=== PATIENT | male | born 1970 | race Hispanic/Latino ===

== ENCOUNTER 2017-03-15 18:18 | Observation (INO) | payer BC, SELFPAY ==
[2017-03-15 18:59] LABS: #Basophils 0.1 thou/uL (0.0-0.2); #Eosinphils 0.1 thou/uL (0.0-0.7); #Lymphocytes 3.1 thou/uL (1.20-3.40); #Monocytes 0.7 thou/uL (0.11-0.59); #Neutrophils 3.2 thou/uL (1.40-6.50); %Basophils 1.2 % (0.0-1.0); %Eosinophils 1.8 % (0.0-10.0); %Lymphocytes 43.3 % (21.0-51.0); %Monocytes 9.7 % (0.0-10.0); Hematocrit 47.6 % (42.0-52.0); Mean Platelet Volume 10.2 fL (7.4-10.4); Red Blood Cell (RBC) Count 5.57 mill/uL (4.70-6.10); White Blood Cell (WBC) Count 7.2 thou/uL (4.8-10.8)
[2017-03-15 19:19] LABS: ALT (SGPT) 68 U/L (8-55); AST (SGOT) 35 U/L (5-34); Alkaline Phosphatase 135 U/L (40-150); Anion Gap 12 mmol/L (10-20); BUN (Urea Nitrogen) 12 mg/dL (8.9-20.6); Bilirubin, Total 0.6 mg/dL (0.2-1.2); CK (CPK) 228 U/L (30-200); Calc. Creatinine Clearance 0 mL/min (70-130); Calcium 9.5 mg/dL (7.8-10.44); Carbon Dioxide 25 mmol/L (22-29); Chloride 106 mmol/L (98-107); Estimated GFR-MDRD Greater than 90; Globulin 3.3 g/dL (2.4-3.5); Lipase 30 U/L (8-78); Protein, Total 7.5 g/dL (6.0-8.3)
[2017-03-15 19:23] LABS: Troponin I Less than 0.010 ng/mL (< 0.028)
[2017-03-15] MEDS ORDERED: Nitroglycerin 2% Ointment 1 INCH/1 GM Packet ONE (19:40)
[2017-03-15] MEDS ORDERED: Nitroglycerin 0.4 MG TAB (25 Tab Bottle) PO PRN (19:57)
[2017-03-15] MEDS ORDERED: Sodium Chloride 0.9% 1,000 ML IV SCH (20:00)
--- NOTE | 2017-03-15 20:06 | RAD ---
FRONTAL VIEW CHEST: Comparison: None. History: Chest pain. FINDINGS: There is no evidence of consolidation, effusion, or pneumothorax. Cardiac silhouette is accentuated with portable technique. IMPRESSION: No focal consolidation. POS: [facility]
--- NOTE | 2017-03-15 20:35 | HP ---
PRIMARY CARE PHYSICIAN: Elaine Alonso M.D. CHIEF COMPLAINT: Chest pain. HISTORY OF PRESENT ILLNESS: Mr. Ruvalcaba is a pleasant 46-year-old gentleman, who was seen at [facility] on 03/15/2017. He mainly speaks Guamanian. His son was in the room and was the offset press operator for this clinical encounter. Mr. Ruvalcaba was reportedly doing well until today morning. Today morning, he developed retros ternal chest discomfort, sharp, cannot 10/10 at its worst, no known aggravating or relieving factors , radiating to the jaw, not accompanied by shortness of breath, nausea, or lightheadedness. It last ed several hours and is now resolved. REVIEW OF SYSTEMS: The following complete review of systems was negative, unless otherwise mentione d in the HPI or below: Constitutional: Weight loss or gain, sense of well-being, ability to conduct usual activities, exer cise tolerance. Skin/Breast: Rash, itching, changes in hair growth or loss, nail changes, breast lumps, tenderness, swelling, nipple discharge. Eyes: Vision, double vision, tearing, blind spots, pain. ENT/Mouth: Headaches (location, time of onset, duration, precipitating factors), vertigo, lighthead edness, injury. Vision, double vision, tearing, blind spots, pain, nose bleeding, colds, obstruction , discharge, dental difficulties, gingival bleeding, dentures, neck stiffness, pain, tenderness, mas ses in thyroid or other areas. Cardiovascular: Precordial pain, substernal distress, palpitations, syncope, dyspnea on exertion, o rthopnea, nocturnal paroxysmal dyspnea, edema, cyanosis, hypertension, heart murmurs, varicosities, phlebitis, claudication. Respiratory: Pain, shortness of breath, wheezing, stridor, cough, hemoptysis, fever or night sweats . Gastrointestinal: Poor appetite, dysphagia, indigestion, abdominal pain, heartburn, eructation, vazquez sea, vomiting, hematemesis, jaundice, constipation, or diarrhea, abnormal stools (andria-colored, merlyn y, bloody, greasy, foul smelling), flatulence, hemorrhoids, recent changes in bowel habits. Genitourinary: Urgency, frequency, dysuria, nocturia, hematuria, polyuria, oliguria, unusual (or ch papa in) color of urine, stones, hesitancy, change in size of stream, dribbling, acute retention or incontinence, libido, potency. Musculoskeletal: Pain, swelling, redness or heat of muscles or joints, limitation, of motion, muscu lar weakness, atrophy, cramps. Neurologic/Psychiatric: Convulsions, paralyses, tremor, incoordination, paresthesias, difficulties with memory of speech, sensory or motor disturbances, or muscular coordination (ataxia, tremor), emo tional problems, anxiety, depression, previous psychiatric care, unusual perceptions, hallucinations . Allergy/Immunologic: Skin rash, anemia, bleeding tendency, polydipsia, polyuria, intolerance to hea t or cold. PAST MEDICAL HISTORY: The patient reports that he was diagnosed for dyslipidemia in the past, but h as not needed medications. PAST SURGICAL HISTORY: None. SOCIAL HISTORY: The patient smokes 4 or 5 cigarettes a day. He denies recreational drug use. He r eports alcohol use over the weekends. FAMILY HISTORY: His mother from heart attack. ALLERGIES: No known drug allergies. CURRENT MEDICATIONS: None. PHYSICAL EXAMINATION: GENERAL: Mr. Ruvalcaba is awake and alert, not in acute distress. VITAL SIGNS: Blood pressure is 137/98, pulse is 64. He is breathing at rate of 16 and saturating 9 6% on room air. He is afebrile. EYES: No scleral icterus. No conjunctival pallor. ENT: Moist mucosal membranes, no oropharyngeal erythema or exudates. NECK: Supple, nontender, normal range of movement, trachea is midline. RESPIRATORY: Accessory muscles of breathing are not active. Chest wall movements are symmetric estrada aterally. LUNGS: Clear to auscultation without wheeze, rhonchi or crepitations. CARDIOVASCULAR: S1 and S2 are heard, regular. Peripheral pulses are palpable. No carotid bruit, n o pericardial rub. ABDOMEN: Soft and nontender, bowel sounds are heard, no hepatomegaly, no splenomegaly. SKIN: No rashes or subcutaneous nodules. NEUROLOGIC: Cranial nerves II-XII are intact. Deep tendon reflexes are 2+. MUSCULOSKELETAL: Power is 5/5 in all 4 extremities. Normal range of movement at all major extremit y joints. LYMPHATIC: No cervical lymphadenopathy. PSYCHIATRIC: Normal mood, normal affect, the patient is oriented to person, place, and time. LABS AND INVESTIGATIONS: Mr. Ruvalcaba's labs and investigations were reviewed. I reviewed his electrocardiogram, which shows sinus bradycardia, no ST changes to suggest an acute coronary syndro me. I also reviewed his chest x-ray, which does not show any pulmonary infiltrates. Laboratory investigation show an unremarkable CBC, normal electrolytes, normal creatinine, elevated AST and elevated ALT of 35 and 68 respectively, elevated CK of 228, normal alkaline phosphatase, nor mal total bilirubin, normal troponin I and normal lipase. BNP is normal. ASSESSMENT AND PLAN: Mr. Ruvalcaba is a pleasant 46-year-old gentleman who was seen at [facility]. His problem list includes: 1. Chest pain: Etiology is unclear. Given his risk factors, we will admit the patient to the [facility] observation status for telemetry monitoring and for stress test. We will also check D-dimer to rule out pulmonary embolism. 2. Dyslipidemia: The patient reports having a history of dyslipidemia, but not being treated for i t. We will check fasting lipid profile and proceed. 3. Tobacco abuse: The patient has been counseled regarding tobacco cessation, we will start him on nicotine replacement therapy. 4. Rhabdomyolysis: Mild, we will hydrate the patient and recheck CK level. Creatinine is normal t dave. 5. Abnormal liver function tests: Isolated transaminitis, likely secondary to rhabdomyolysis. We will recheck. Many thanks for allowing me to participate in your patient's care. Please feel free to contact me w ith any questions or concerns. LEVEL OF RISK: High. LEVEL OF COMPLEXITY: High.
[2017-03-15] MEDS ORDERED: Nicotine 14 MG PATCH TD SCH (21:00)
[2017-03-15 22:11] LABS: Troponin I Less than 0.010 ng/mL (< 0.028)
[2017-03-15 22:27] VITALS: BMI 31.8
[2017-03-16 01:12] LABS: Troponin I Less than 0.010 ng/mL (< 0.028)
[2017-03-16] MEDS ORDERED: ADENOSINE 60 MG/20 ML VIAL ONE (01:36)
[2017-03-16 04:48] LABS: #Basophils 0.1 thou/uL (0.0-0.2); #Eosinphils 0.2 thou/uL (0.0-0.7); #Lymphocytes 2.6 thou/uL (1.20-3.40); #Monocytes 0.6 thou/uL (0.11-0.59); #Neutrophils 2.3 thou/uL (1.40-6.50); %Basophils 1.2 % (0.0-1.0); %Eosinophils 3.7 % (0.0-10.0); %Lymphocytes 45.6 % (21.0-51.0); Hematocrit 43.8 % (42.0-52.0); Mean Platelet Volume 10.5 fL (7.4-10.4); Red Blood Cell (RBC) Count 5.07 mill/uL (4.70-6.10); White Blood Cell (WBC) Count 5.7 thou/uL (4.8-10.8)
[2017-03-16 05:08] LABS: ALT (SGPT) 53 U/L (8-55); AST (SGOT) 27 U/L (5-34); Alkaline Phosphatase 123 U/L (40-150); Bilirubin, Direct 0.1 mg/dL (0.1-0.3); Bilirubin, Total 0.3 mg/dL (0.2-1.2); Protein, Total 6.6 g/dL (6.0-8.3)
[2017-03-16 05:09] LABS: Anion Gap 15 mmol/L (10-20); BUN (Urea Nitrogen) 13 mg/dL (8.9-20.6); CK (CPK) 154 U/L (30-200); Calc. Creatinine Clearance 139 mL/min (70-130); Calcium 8.8 mg/dL (7.8-10.44); Carbon Dioxide 20 mmol/L (22-29); Chloride 108 mmol/L (98-107); Estimated GFR-MDRD Greater than 90
[2017-03-16] MEDS ORDERED: Enoxaparin Sodium 40 MG/0.4 ML SYRINGE SC SCH (09:00)
[2017-03-16] MEDS ORDERED: FLU VACC QS2017-18 36 mo. & older 0.5 ML SYRINGE IM ONE (09:00)
[2017-03-16] MEDS ORDERED: Aspirin 325 MG TAB PO SCH (09:00)
[2017-03-16 13:50] VITALS: BP 131/76; TEMP 98.2
--- NOTE | 2017-03-16 14:16 | NM ---
STRESS REST CARDIAC SPECT WITH EF AND WALL MOTION: HISTORY: A 46-year-old male with chest pain, dyslipidemia, and smoking history. This is adenosine sestamibi study. The patient was injected with 33.0 mCi Technetium 99m sestamibi intravenously for stress images and the patient was injected with 9.0 mCi Technetium 99m sestamibi intravenously for resting images. Multiple SPECT images in the short axis, vertical long axis, and horizontal long axis demonstrate no scan evidence for infarct or ischemia. TID 1.14. LHR 0.38. EDV 92 mL. EF is 62%. MYOCARDIAL PERFUSION WALL MOTION: Wall motion is normal. IMPRESSION: Normal stress rest cardiac SPECT with ejection fraction and wall motion. POS: [facility]
--- NOTE | 2017-03-17 09:47 | DIS ---
DATE OF ADMISSION: 03/15/2017 DATE OF DISCHARGE: 03/16/2017 DISCHARGE DISPOSITION: Home. FOLLOWUP: Follow up with primary care physician at [facility] in 1 week. INPATIENT CONSULTANTS: None. The patient was seen and examined on the day of discharge, denies any new complaints. DISCHARGE MEDICATIONS: None. Lifestyle modification was emphasized. BRIEF HOSPITAL COURSE: Patient is a 46-year-old male who presented to the hospital with chest disco mfort. Please refer to the history and physical dictated by Dr. Pagan for further details. The patient was admitted to the hospital with a diagnosis of chest discomfort, rule out acute erazo ry syndrome. Serial cardiac enzymes were normal. He underwent Cardiolite stress test that was nega tive for reversible ischemia. He is chest pain free. Lifestyle modification was emphasized. His L DL was 120 with cholesterol of 200 and triglyceride 187. Statins were discussed with the patient. However, patient would like to try lifestyle modification first. Repeat lipid profile in 4-6 weeks is recommended. Primary care physician is advised to follow. His D-dimer was also negative. FINAL DIAGNOSES: 1. Chest discomfort, acute coronary syndrome ruled out. 2. Negative Cardiolite stress test. 3. Dyslipidemia. Lifestyle modification was emphasized. Patient declined statins. 4. Ongoing tobacco abuse. The patient was counseled extensively. 5. Abnormal liver function tests on admission, resolved. Probably secondary to alcohol use. 6. Obesity with BMI of 31.8. Slightly elevated CK at 228 on admission, repeat was 154. Plan of care was discussed with the patient. He stated understanding.
--- NOTE | 2017-03-24 13:27 | STRESS ---
Acquisition Time: 2017-03-16 12:14:12 Total Exercise Time: 00:04:00 Test Indications: CHEST PAIN Medications: Protocol: ADENOSINE Max HR: 065 BPM 37% of Pred: 172 BPM Max BP: 134/078 mmHG Max Work Load: 1.0 METS RESTING ECG: SINUS BRADYCARDIA AT 48 BPM SYMPTOMS:NONE NORMAL BP RESPONSE TO STRESS ETCOPY: NONE ECG STRESS: NO SIGNIFICANT CHANGES INTERPRETATION: AWAIT NUCLEAR IMAGES FOR DEFINITIVE DIAGNOSIS Confirmed by NIKOLE GOMEZ ([id number]), editor index AMARIS GALEANA ([id number]) on 03/24/2017 1:26:50 PM Referred By: MD Mervin LARA Confirmed By:NIKOLE GOMEZ
== END 2017-03-16 16:00 | disposition home or self-care (01) ==
LOC: ERS 18:18 → 2SW 20:00
PROVIDERS: ADMIT Internal Medicine; ATTEND Internal Medicine
DX: R07.2 Precordial pain (principal); E78.00 Pure hypercholesterolemia, unspecified; R94.5 Abnormal results of liver function studies; E66.9 Obesity, unspecified; M62.82 Rhabdomyolysis; F17.210 Nicotine dependence, cigarettes, uncomplicated; Z68.31 Body mass index [BMI] 31.0-31.9, adult; Z82.49 Family history of ischemic heart disease and other diseases of the circulatory system
CPT/HCPCS: 36415; 71010; 78452; 80048; 80053; 80061; 80076; 82550; 82553; 83690; 83880; 84484; 85025; 85379; 90471; 90682; 90732; 93005; 93017; 94760; 96360; 96361; A4216; A9500; G0008; G0009; G0378; J0153; J1650; Q2036

== ENCOUNTER 2019-06-27 16:07 | Outpatient (CLI) | payer BC ==
--- NOTE | 2019-06-27 17:08 | RAD ---
PA AND LATERAL CHEST: 06/27/19 HISTORY: Tobacco abuse. Heart size within normal limits. There are atherosclerotic changes of the aorta. The lungs are clear of infiltrates. There are mild arthritic changes of the spine. IMPRESSION: No active intrathoracic disease. POS: [facility]
== END 2019-06-27 16:08 | disposition home or self-care (01) ==
LOC: BICRAD 16:07
PROVIDERS: ATTEND Family Medicine
DX: F17.200 Nicotine dependence, unspecified, uncomplicated (principal)
CPT/HCPCS: 71046